=== PATIENT | female | born 1955 | race Caucasian/White ===

== ENCOUNTER → 2018-06-13 | Emergency (ER) | payer OTHER ==
[~2018-06-13] VITALS: Ht 162.6 cm; Wt 62.6 kg
== END | disposition home or self-care (01) ==
LOC: ER 21:53
DX: K62.5 Hemorrhage of anus and rectum (principal); K57.31 Diverticulosis of large intestine without perforation or abscess with bleeding

== ENCOUNTER → 2018-11-09 | Emergency (ER) | payer OTHER ==
[~2018-11-09] VITALS: Ht 160 cm; Wt 64.4 kg
[~2018-11-09] MED LIST: ALTOPREV40 MG; CIPRO100 MG PO; CIPRO500 MG PO; FLAGYL500MG PO; INTESTINEX680 M1 PO; KETO10TA2 PO; LEVSIN/SL0.125 MG SL; PEPCID AC20 MG PO; PNEU16DI2; PROTONIX40 MG PO; SYNTHROID50 MCG
== END | disposition home or self-care (01) ==
LOC: ER 21:43
DX: K57.92 Diverticulitis of intestine, part unspecified, without perforation or abscess without bleeding (principal)